=== PATIENT | male | born 1975 | race Caucasian/White ===

== ENCOUNTER → 2024-07-11 | Outpatient (CLI) | payer BC ==
[2024-07-11 13:55] VITALS: BP 129/77; PULSE 60; RESP 16; TEMP 97.7
--- NOTE | 2024-07-11 14:29 | P.SLEEP ---
History of Present Illness DATE: 07/11/2024 CONSULTATION/NEW PATIENT EVALUATION HISTORY OF PRESENT ILLNESS/SLEEP-WAKE EVALUATION: 48-year-old gentleman had been evaluated in the sleep center for possible obstructive sleep apnea hypopnea syndrome. SLEEP SCHEDULE: Usually sleep schedule from 11 PM to 6:30 AM on weekdays and until 7 AM on weekend. FALLING ASLEEP: Sometimes patient has difficulties with falling asleep, although no TV in bedroom. DURING SLEEP: Patient sleeps on the back and side position with loud snoring and witnessed episodes of stop breathing during the sleep by his . Significant amount of movements during the sleep no history of hypnogogical hallucinations, sleep paralysis, or cataplexy. DURING THE DAY/WAKE STATE: In the morning patient wake up tired, has difficulties to pay attention, has problems with concentration and irritability. [place] sleepiness scale is 4, but patient feel tiredness and sleepiness during the day. Patient does not take naps. PAST MEDICAL HISTORY: B12 deficiency anemia, episodes of headaches in the morning. PAST SURGICAL HISTORY: Vasectomy. MEDICATIONS: None at the present time. SOCIAL HISTORY: Please see below. FAMILY HISTORY: Please see below. REVIEW OF SYSTEMS: Loud snoring, awakenings from sleep more than 6 times, tiredness and sleepiness during the day. No fevers. No double vision. No recent chest pain. No shortness of breath. No abdominal pain. No bleeding episodes. No blood in urine. No seizure episodes. PHYSICAL EXAMINATION: GENERAL: A pleasant patient without any distress. VITAL SIGNS: Reviewed, please see below, weight 211 pounds, BMI 30.2. HEENT: PERRLA, EOMI. Evaluation of oropharynx showed tongue protrudes midline, low position of soft palate Mallampati 34, retrognathia 1 to 2 mm. NECK: Supple. No JVD. Thyroid is not palpable. 16 inches in circumference. LUNGS: Clear to percussion and to auscultation. Good air exchange. No wheezing or rhonchi. HEART: S1, S2 regular. No murmurs, gallops or rubs. ABDOMEN: Soft and nontender. Bowel sounds are present. No organomegaly appreciated. EXTREMITIES: No clubbing or cyanosis. MISSIONARY COORDINATOR: Awake, alert, and oriented x3. Cranial nerves 2 to 7 intact. There is no fasciculation or atrophy noted. No focal deficits observed. ASSESSMENT: 1. Loud snoring, witnessed episodes of stop breathing during the sleep, small oropharyngeal airspace Mallampati 34. Obstructive sleep apnea hypopnea syndrome. 2. History of pernicious anemia. 3. Significant amount of movements during the sleep, possibly periodic limb movements. 4. Headaches in the morning after awakenings. 5 status post vasectomy. 6 . Mild obesity by BMI 30.2. PLAN: 1. Home sleep apnea test for evaluation of patient's breathing during sleep. 2. Following plan after reading sleep study. 3. Preferable position during sleep on the side. 4. No driving if patient feels any sleepiness. Patient is aware of civil and criminal liability for unsafe driving. 5. Sleep hygiene with regular sleep time for at least 7.5-8 hours. 6. Watching weight. Thank you very much for referring this patient for consultation. Sincerely, oNe Judd MD, PhD, FAASM. Diplomat of [place] [employer], Sleep Medicine Board by [place] [employer] [employer] [facility] [place] cc: Bjorn Henao MD Past Medical History Past Medical History: Blood Disorder Additional Past Medical History / Comment(s): pernicious Anemia History of Any Multi-Drug Resistant Organisms: None Reported Additional Past Surgical History / Comment(s): vasectomy Past Anesthesia/Blood Transfusion Reactions: No Reported Reaction Past Psychological History: No Psychological Hx Reported Smoking Status: Never smoker Past Alcohol Use History: None Reported Past Drug Use History: None Reported - Past Family History Mother Family Medical History: Thyroid Disorder Additional Family Medical History / Comment(s): snoring Father Additional Family Medical History / Comment(s): snoring Brother(s) Family Medical History: Thyroid Disorder Physical Exam Vitals: Vital Signs Temp Pulse Resp BP Pulse Ox 07/11/24 13:54 97.7 F 60 16 129/77 99 Intake and Output 07/10/24 07/11/24 07/11/24 22:59 06:59 14:59 Other: Weight 95.708 kg Sleep Note - Sleep Data ESS Total: 4 - Sleep Note Sleep Note: Temperature: 97.7 F Pulse Rate: 60 Respiratory Rate: 16 Blood Pressure: 129/77 SpO2: 99 Height: 5 ft 10 in Weight: 95.708 kg BMI: Neck Circumference: 16
== END ==
LOC: 3 N SLEEP 13:33
PROVIDERS: ATTEND Internal Medicine
DX: G47.33 Obstructive sleep apnea (adult) (pediatric) (principal); R51.9 Headache, unspecified; E66.9 Obesity, unspecified; Z98.52 Vasectomy status; Z86.2 Personal history of diseases of the blood and blood-forming organs and certain disorders involving the immune mechanism; Z68.30 Body mass index [BMI] 30.0-30.9, adult
CPT/HCPCS: 99202

== ENCOUNTER → 2024-08-06 | Outpatient (CLI) | payer BC ==
--- NOTE | 2024-08-09 10:47 | P.PCN ---
Description of Procedure: CLINICAL: A home sleep apnea test has been done for confirmation of possible obstructive sleep apnea-hypopnea syndrome. DESCRIPTION OF PROCEDURE: RESULTS: Recording time was 8 hours 15 minutes. Evaluation time was 8 hours 01 minutes. Evaluation time is sufficient for making conclusion about results of the test. Raw data of sleep recording has been reviewed and is adequate. Respiratory channel showed 31 apneas and 20 hypopneas. Apnea-hypopnea index was 6.4 per hour. Pulse rate in the range between minimum 40, maximum 96, average 49 by computer calculation. Lowest desaturation was 88%. IMPRESSION: 1. Obstructive Sleep Apnea Hypopnea Syndrome in mild range. Please see other impressions from consultation. PLAN: 1. I will see patient for follow-up visit to discuss results of the test and following plan. 2. Sleep hygiene with regular time in bed for at least 8 hours. 3. Watching weight. 4. No driving if feeling any sleepiness. Thank you very much for allowing me to participate in the management of your patient. Sincerely, Noe Judd MD, PhD, FAASM Diplomat of [place] [employer] Sleep Medicine Board of [place] [employer] Medicine [employer] [facility] [place] cc: Bjorn Henao MD
== END ==
LOC: 3 N SLEEP 10:50
PROVIDERS: ATTEND Internal Medicine
DX: G47.33 Obstructive sleep apnea (adult) (pediatric) (principal)

== ENCOUNTER → 2024-09-12 | Outpatient (CLI) | payer BC ==
[2024-09-12 16:59] VITALS: BP 120/80; PULSE 56; RESP 16; TEMP 97.8
--- NOTE | 2024-09-12 17:39 | P.PROGSL ---
Subjective DATE: 09/12/2024 FOLLOW UP VISIT. Patient returned to sleep center for follow-up visit to discuss results of sleep study and following plan. I discussed results of home sleep apnea test with patient in details. It was documented mild obstructive sleep apnea hypopnea syndrome. Patient has symptoms of excessive daytime sleepiness. [place] sleepiness scale is [place] Sleepiness Scale is significantly increased today to 12. MEDICATIONS: None During physical exam: GENERAL: A pleasant patient without any distress. VITAL SIGNS: Have been reviewed, please see below, weight 211 pounds. HEENT: [place], EOMI. NECK: Supple. No JVD. LUNGS: Clear to percussion and to auscultation. Good air exchange. No wheezing or rhonchi. HEART: S1, S2 regular. ABDOMEN: Soft and nontender. EXTREMITIES: No clubbing or cyanosis. AIR BAG CURER: Awake, alert, and oriented x3. No focal deficit. Impressions: 1. Obstructive sleep apnea hypopnea syndrome in mild range. Patient present with symptoms of excessive daytime sleepiness. 2. History of headaches in the morning after awakenings. 3. History of pernicious anemia. 4. Significant amount of movements during sleep possible periodic limb movements. 5. Mild obesity, BMI 30.2. 6. Status post vasectomy. Plan: 1. Patient will be started on treatment with AutoPap and should use equipment every night for the whole night. 2. Sleep hygiene with regular time in bed for at least 8 hours. 3. I will see patient for follow-up visit to evaluate clinical response on treatment, compliance with treatment and [place] adjustments related to mask fitting pressure and humidification in 30 to 90 days after starting usage of CPAP equipment. 4. Precautions related to driving. No driving if feel any sleepiness. Patient is aware about civil and criminal liability for unsafe driving, promised to follow recommendations. 5. Watching weight. Thank you very much for allowing me to participate in the management of your patient. Noe Judd MD, PhD, FAASM. Diplomat of [place] [employer], Sleep Medicine Board by [place] [employer] [facility] [employer] cc: Bjorn Henao MD Objective - Vital Signs Vital Signs: Vital Signs Temp 97.8 F 09/12/24 16:58 Pulse 56 L 09/12/24 16:58 Resp 16 09/12/24 16:58 BP 120/80 09/12/24 16:58 Pulse Ox 98 09/12/24 16:58 FiO2
== END ==
LOC: 3 N SLEEP 16:34
PROVIDERS: ATTEND Internal Medicine
DX: G47.33 Obstructive sleep apnea (adult) (pediatric) (principal); R40.0 Somnolence; E66.9 Obesity, unspecified; Z86.2 Personal history of diseases of the blood and blood-forming organs and certain disorders involving the immune mechanism; Z68.30 Body mass index [BMI] 30.0-30.9, adult; Z98.52 Vasectomy status; Z86.69 Personal history of other diseases of the nervous system and sense organs
CPT/HCPCS: 99212

== ENCOUNTER → 2024-12-13 | Outpatient (CLI) | payer BC ==
[2024-12-13 15:53] VITALS: BP 150/77; PULSE 54; RESP 16; TEMP 97.5
--- NOTE | 2024-12-13 17:22 | P.PROGSL ---
Subjective DATE: 12/13/2024 FOLLOW UP VISIT. Patient with obstructive sleep apnea hypopnea syndrome return to sleep center for follow-up visit. Recently patient had sleep study which documented obstructive sleep apnea hypopnea syndrome. Patient was initiated on PAP therapy and today is first visit after treatment was started. I explained to the patient results of sleep studies in details. Patient was able to use PAP equipment every night for the whole night. The patient does not have significant problems with the mask, PAP pressure and humidification. [place] sleepiness scale is 7. I checked information from PAP unit. PAP unit pressure 5-13, average 8 cm H2O. Usage is 95% for more then 4 hours, average 4.9 hours per night. Leak is 10 l/m, which is in acceptable range. Apnea Hypopnea Index is 2.8, which is normal. MEDICATIONS: Please see below During physical exam: GENERAL: A pleasant patient without any distress. VITAL SIGNS: Please see below, weight 210 pounds. HEENT: PERRLA, EOMI.low position of soft palate, Mallapati 3/4. NECK: Supple. No JVD. LUNGS: Clear to percussion and to auscultation. Good air exchange. No wheezing or rhonchi. HEART: S1, S2 regular. ABDOMEN: Soft and nontender.[] EXTREMITIES: No clubbing or cyanosis. WRECKING MECHANIC: Awake, alert, and oriented x3. No focal deficit. Impressions: 1. Obstructive sleep apnea-hypopnea syndrome. Patient demonstrated great compliance with treatment, benefiting from treatment. 2. History of pernicious anemia. 3. History of headaches, significant improvements after starting using CPAP. 4. Status post vasectomy. 5. Overweight, borderline to obesity, BMI around 30. Plan: 1. Continue using PAP equipment every night for the whole night. 2. To change air filter at least 1-2 times per month. 3. PAP unit should stay lower then position of the head. 4. Advised patient to remove all remaining water from humidifier canister daily and make it dry after each usage. Refill canister with fresh distilled water before each usage. 5. Sleep hygiene with regular time in bed for at least 8 hours. 6. Precautions related to driving. No driving if feel any sleepiness. 7. I will maintain prescription for PAP supplies including mask, tube, filters. 8. Follow up visit in 8 months or earlier if patient has any problems. 9. Watching weight. Thank you very much for allowing me to participate in the management of your patient. Noe Judd MD, PhD, FAASM. Diplomat of [place] [employer] Sleep Medicine, Sleep Medicine Board by [place] [employer] Medicine [employer] Professor of [facility] [place] Objective - Vital Signs Vital Signs: Vital Signs Temp 97.5 F L 12/13/24 15:52 Pulse 54 L 12/13/24 15:52 Resp 16 12/13/24 15:52 BP 150/77 12/13/24 15:52 Pulse Ox 98 12/13/24 15:52 FiO2 Intake & Output 12/12/24 12/13/24 12/13/24 18:59 06:59 18:59 Weight 95.254 kg
== END ==
LOC: 3 N SLEEP 15:28
PROVIDERS: ATTEND Internal Medicine
DX: G47.33 Obstructive sleep apnea (adult) (pediatric) (principal); E66.3 Overweight; Z68.30 Body mass index [BMI] 30.0-30.9, adult; Z98.52 Vasectomy status; Z99.89 Dependence on other enabling machines and devices; Z86.2 Personal history of diseases of the blood and blood-forming organs and certain disorders involving the immune mechanism; Z86.69 Personal history of other diseases of the nervous system and sense organs
CPT/HCPCS: 99212